=== PATIENT | male | born 1985 | race Caucasian/White ===

== ENCOUNTER 2016-09-10 21:27 | Emergency (ER) | payer BC ==
[2016-09-10] MEDS ORDERED: NS 1,000 ML IV ONE ×2 (21:31→22:34)
--- NOTE | 2016-09-10 21:35 | CPEKG ---
Heart Rate: 122 RR Interval: 492 P-R Interval: 156 QRSD Interval: 104 QT Interval: 320 QTC Interval: 456 P [place]: 60 QRS [place]: 26 T Wave [place]: 25 EKG Severity - BORDERLINE ECG - EKG Impression: SINUS TACHYCARDIA EKG Impression: PROBABLE LEFT ATRIAL ABNORMALITY Electronically Signed By: Mairo Randall 12-Sep-2016 13:05:26
[2016-09-10] MEDS ORDERED: LORazepam 2 MG/ML INJ IVP ONE (21:41)
[2016-09-10 21:46] LABS: % IMMATURE GRANULYOCYTES 0.3 % (0.0-1.1); ABSOLUTE IMMATURE GRANULOCYTES 0.03 10^3/uL (0.00-0.10); ADD DIFF? NO; ADD MORPH? NO; ADD SCAN? NO; ATYPICAL LYMPHOCYTE FLAG 10 (0-99); FRAGMENT RBC FLAG 20 (0-99); HEMATOCRIT 48.2 % (40.0-51.0); HEMOGLOBIN 17.4 g/dL (13.7-17.5); LEFT SHIFT FLG 0 (0-99); LIPEMIA HEMOLYSIS FLAG 90 (0-99); MEAN CELL HEMOGLOBIN 30.5 pg (27.9-34.1); MEAN CELL HEMOGLOBIN CONCENTR. 36.1 g/dL (32.4-36.7); MEAN CELL VOLUME 84.6 fL (81.5-99.8); PLATELET CLUMPS FLAG 10 (0-99); PLATELET COUNT 358 10^3/uL (150-400); RED CELL DISTRIBUTION WIDTH 11.8 % (11.5-15.2)
--- NOTE | 2016-09-10 21:47 | EDPHY ---
HPI/HX/ROS/PE/MDM Narrative: Chief complaint: Palpitations and chest tightness HPI: 31-year-old male began having palpitations and chest tightness approximately 30 minutes prior to arrival. Patient denies similar symptoms in the past. He has a past medical history of attention deficit hyperactivity disorder and takes Adderall in divided doses over the course today. Patient states that he also smokes small amount of marijuana daily. He has been cutting down on his alcohol consumption states he had half a drink today. He does smoke 1 cigarette a day. Denies any recent illness. No fevers or chills. No nausea or vomiting. Has not had similar symptoms in the past has switched to a new type of marijuana 5 days ago but has never had these symptoms before. Has denies any other ingestions. Does not have a past medical history of of sudden cardiac or arrhythmia to his knowledge. States that he does not believe he has taken extra doses of his medications today as he was only the days without in a pill bottle every morning. Patient states that during EMS arrival his chest tightness has gone away but is still feeling some palpitations and heart racing. ROS: 10 point Review of Systems is negative except as noted in the HPI. Physical exam: Gen: Awake, Alert, No Distress, heart rate noted 136 a narrow complex HEENT: Nose: no rhinorrhea Eyes: PERRLA, EOMI Mouth: Moist mucosa Neck: Supple, no JVD Chest: nontender, lungs clear to auscultation Heart: Tachycardia, no obvious murmur but difficult to assess due to her increased rate Abd: Soft, non-tender, no guarding Back: no CVA tenderness, no midline tenderness Ext: no edema, non-tender Skin: no rash Neuro: CN II-XII intact, Sensation grossly intact, Strength 5/5 in bilateral upper and lower extremities ED Course: EC, sinus tachycardia with a rate of 122. Normal axis, normal intervals , no acute ST or T-wave changes, impression: Sinus tachycardia Patient is feeling improved after a L of IV fluids. Has also gotten a dose of Ativan here. Heart rate is down to 108. He is resting comfortably. ECG shows a sinus tachycardia with no ischemia or concerning features. Laboratory evaluations are unremarkable. There is no evidence of acute cardiac abnormality at this time. Will discharge with referral for outpatient follow-up. - Data Points Laboratory Results: Laboratory Results 09/10/16 21:20 09/10/16 21:20 09/10/16 21:20 WBC 10.01 H 10^3/uL (3.80-9.50) RBC 5.70 10^6/uL (4.40-6.38) Hgb 17.4 g/dL (13.7-17.5) Hct 48.2 % (40.0-51.0) MCV 84.6 fL (81.5-99.8) MCH 30.5 pg (27.9-34.1) MCHC 36.1 g/dL (32.4-36.7) RDW 11.8 % (11.5-15.2) Plt Count 358 10^3/uL (150-400) MPV 10.0 fL (8.7-11.7) Neut % (Auto) 37.5 L % (39.3-74.2) Lymph % (Auto) 51.4 H % (15.0-45.0) [place] % (Auto) 8.6 % (4.5-13.0) Eos % (Auto) 1.2 % (0.6-7.6) Baso % (Auto) 1.0 % (0.3-1.7) Nucleat RBC Rel Count 0.0 % (0.0-0.2) Absolute Neuts (auto) 3.75 10^3/uL (1.70-6.50) Absolute Lymphs (auto) 5.15 H 10^3/uL (1.00-3.00) Absolute Monos (auto) 0.86 H 10^3/uL (0.30-0.80) Absolute Eos (auto) 0.12 10^3/uL (0.03-0.40) Absolute Basos (auto) 0.10 10^3/uL (0.02-0.10) Absolute Nucleated RBC 0.00 10^3/uL (0-0.01) Immature Gran % 0.3 % (0.0-1.1) Immature Gran # 0.03 10^3/uL (0.00-0.10) Sodium 141 mEq/L (134-144) Potassium 4.0 mEq/L (3.5-5.2) Chloride 100 mEq/L (97-110) Carbon Dioxide 27 mEq/l (22-31) Anion Gap 14 mEq/L (8-16) BUN 16 mg/dL (7-23) Creatinine 1.0 mg/dL (0.7-1.3) Estimated GFR > 60 Glucose 102 H mg/dL (70-100) Calcium 10.0 mg/dL (8.5-10.4) Medications Given: Discontinued Medications Sodium Chloride (Ns) 1,000 mls @ 0 mls/hr IV ONCE ONE PRN Reason: Wide Open Stop: 09/10/16 21:32 Last Admin: 09/10/16 21:30 Dose: 1,000 mls Sodium Chloride (Ns) 1,000 mls @ 0 mls/hr IV ONCE ONE PRN Reason: Wide Open Stop: 09/10/16 22:35 Last Admin: 09/10/16 22:38 Dose: 1,000 mls Lorazepam (Ativan Injection) 1 mg IVP EDNOW ONE Stop: 09/10/16 21:42 Last Admin: 09/10/16 21:45 Dose: 1 mg General Initial Vital Signs: Initial Vital Signs Temperature (C) 36.9 C 09/10/16 21:36 Heart Rate 132 H 09/10/16 21:36 Respiratory Rate 16 09/10/16 21:36 Blood Pressure 155/102 H 09/10/16 21:36 O2 Sat (%) 92 09/10/16 21:36 O2 Delivery Mode Room Air Allergies/Adverse Reactions: No Known Allergies Allergy (Unverified 12/26/14 20:49) Home Medications: Medication Instructions Recorded Adderall 09/10/16 Departure - Departure Disposition: Home, Routine, Self-Care Clinical Impression: Palpitations Condition: Good Instructions: Palpitations (ED) Additional Instructions: Avoid caffeine or other stimulants while taking or Adderall. Avoid using marijuana until you have this further investigated. Continue to decrease your alcohol intake. Follow up with her primary care physician in 2-3 days for further evaluation. Referrals: Ulisses Johnson MD [Primary Care Provider] - As per Instructions
[2016-09-10 22:00] LABS: ANION GAP 14 mEq/L (8-16); CARBON DIOXIDE 27 mEq/l (22-31); CHLORIDE 100 mEq/L (97-110); GLOMERULAR FILTRATION RATE > 60; GLUCOSE 102 mg/dL (70-100); SODIUM 141 mEq/L (134-144)
[2016-09-10 22:20] VITALS: RESP 16
[2016-09-11 00:46] VITALS: BP 132/85; PULSE 89; TEMP 98.1; O2SAT 97
== END 2016-09-10 23:29 | disposition home or self-care (01) ==
LOC: EDUNIT#
DX: R00.2 Palpitations (principal)
CPT/HCPCS: 96374

== ENCOUNTER 2016-09-14 21:03 | Emergency (ER) | payer BC ==
[2016-09-14 21:19] VITALS: RESP 16; TEMP 98.6
--- NOTE | 2016-09-14 21:46 | CPEKG ---
Heart Rate: 79 RR Interval: 759 P-R Interval: 172 QRSD Interval: 106 QT Interval: 368 QTC Interval: 422 P [place]: 62 QRS [place]: 16 T Wave [place]: 21 EKG Severity - NORMAL ECG - EKG Impression: SINUS RHYTHM Electronically Signed By: Gabriela Brambila 14-Sep-2016 22:02:29
--- NOTE | 2016-09-14 22:24 | EDPHY ---
H & P Stated Complaint: palpitations HPI/ROS: HPI CHIEF COMPLAINT: Palpitation HISTORY OF PRESENT ILLNESS: This patient is a 31-year-old male, otherwise healthy no significant medical history, does take Adderall for attention deficit hyperactivity disorder, was recently seen here on September 10 for palpitations and discomfort in his chest had a negative workup was could be contributed to Adderall dehydration and marijuana. Patient presents back to the emergency room this evening with less than 1 minute of chest discomfort he describes it as a spasm no chest pain or pressure. Denies radiation of pain he did not get nauseous he did not have sweating. He tele tells me he got very anxious and concerned and decided to come to the emergency room because of his recent ER visit. Upon arrival here in the emergency room is resting comfortably no acute distress he states he feels fine. Did follow up with his primary care doctor after he was seen here for chest palpitations was noted to have hypertension by his primary care doctor was recommended to keep a close eye on this and keep a log. Patient does tell me that he has no significant family history of cardiac disease or premature cardiac or signs of arrhythmia and his family members. Patient tells me that recently he has made drastic changes in his lifestyle specifically giving up alcohol, not smoking marijuana, and going to the gym daily. Past Medical History: Attention deficit hyperactivity disorder on Adderall Past Surgical History: no significant surgical history Social History: he denies use currently of drugs alcohol tobacco products Family History: noncontributory ROS REVIEW OF SYSTEMS: A comprehensive 10 point review of systems is otherwise negative aside from elements mentioned in the history of present illness. Exam Constitutional appears well, nontoxic triage nursing summary reviewed, vital signs reviewed, awake/alert. (noted to be hypertensive when he got here) Eyes normal conjunctivae and sclera, EOMI, PERRLA. HENT normal inspection, atraumatic, moist mucus membranes, no epistaxis, neck supple/ no meningismus, no raccoon eyes. Respiratory clear to auscultation bilaterally, normal breath sounds, no respiratory distress, no wheezing. Cardiovascular rate normal, regular rhythm, no murmur, no edema, distal pulses normal. Gastrointestinal soft, non-tender, no rebound, no guarding, normal bowel sounds, no distension, no pulsatile mass. Genitourinary no CVA tenderness. Musculoskeletal no midline vertebral tenderness, full range of motion, no calf swelling, no tenderness of extremities, no meningismus, good pulses, neurovascularly intact. Skin pink, warm, & dry, no rash, skin atraumatic. Neurologic awake, alert and oriented x 3, AAOx3, moves all 4 extremities equally, motor intact, sensory intact, CN II-XII intact, normal cerebellar, normal vision, normal speech. Psychiatric normal mood/affect. Heme/Lymph/Immune no lymphadenopathy. Differential Diagnosis: Includes but is not limited to in a particular order, cardiac arrhythmia, doubt acute coronary syndrome, anxiety, dehydration, electrolyte abnormality, rhabdomyolysis Medical Decision Making: this patient will have an IV established will obtain blood work including cardiac markers be placed on full auto refinisher received IV fluid bolus, he have an EKG and troponin this is unlikely to be a presentation of ACS. He feels fine at this time. Re-evaluation: EKG interpretation by me on record in [facility] system. Impression time of EKG 1245, this is sinus rhythm rate of 79. Intervals are appropriate no signs of ischemia. Specifically no ST elevation, ST depression, T-wave abnormalities. No signs of arrhythmia. No signs of WPW or Brugada. 2352: re-evaluation at this time this patient is resting comfortably no acute distress.. Patient has no complaints he denies chest pain or shortness of breath his blood work and EKG, troponin are all unremarkable. He has been on the auto refinisher without any signs of arrhythmia. X-ray has been reviewed is unremarkable. Did explain allowed to go home however if she develops chest pain, shortness of breath, palpitations worsening symptoms he needs return to the ER. He should follow up with Cardiology as directed. Highly unlikely to be ACS presentation given no risk factors age of 31 unremarkable EKG negative troponin unremarkable x-ray. ED x-ray chest one view negative for acute cardiopulmonary disease. Source: Patient - Personal History Current Tetanus/Diphtheria Vaccine: Unsure Current Tetanus Diphtheria and Acellular Pertussis (TDAP): Unsure - Medical/Surgical History Hx Asthma: Yes Hx Chronic Respiratory Disease: No Hx Diabetes: No Hx Cardiac Disease: No Hx Renal Disease: No Hx Cirrhosis: No Hx Alcoholism: No Hx HIV/AIDS: No Hx Splenectomy or Spleen Trauma: No Other PMH: asthma, ADHD, palpitations - Social History Smoking Status: Former smoker Constitutional: Initial Vital Signs Temperature (C) 37 C 09/14/16 21:15 Heart Rate 87 09/14/16 21:15 Respiratory Rate 16 09/14/16 21:15 Blood Pressure 173/104 H 09/14/16 21:15 O2 Sat (%) 97 09/14/16 21:15 O2 Delivery Mode Room Air Allergies/Adverse Reactions: No Known Allergies Allergy (Unverified 09/14/16 21:14) Home Medications: Medication Instructions Recorded Adderall 09/10/16 Medical Decision Making - Data Points Laboratory Results: Laboratory Results 09/14/16 22:15 09/14/16 22:15 09/14/16 22:15 WBC 8.05 10^3/uL (3.80-9.50) RBC 5.40 10^6/uL (4.40-6.38) Hgb 16.6 g/dL (13.7-17.5) Hct 45.5 % (40.0-51.0) MCV 84.3 fL (81.5-99.8) MCH 30.7 pg (27.9-34.1) MCHC 36.5 g/dL (32.4-36.7) RDW 11.7 % (11.5-15.2) Plt Count 284 10^3/uL (150-400) MPV 9.8 fL (8.7-11.7) Neut % (Auto) 59.3 % (39.3-74.2) Lymph % (Auto) 29.8 % (15.0-45.0) [place] % (Auto) 8.8 % (4.5-13.0) Eos % (Auto) 1.2 % (0.6-7.6) Baso % (Auto) 0.7 % (0.3-1.7) Nucleat RBC Rel Count 0.0 % (0.0-0.2) Absolute Neuts (auto) 4.76 10^3/uL (1.70-6.50) Absolute Lymphs (auto) 2.40 10^3/uL (1.00-3.00) Absolute Monos (auto) 0.71 10^3/uL (0.30-0.80) Absolute Eos (auto) 0.10 10^3/uL (0.03-0.40) Absolute Basos (auto) 0.06 10^3/uL (0.02-0.10) Absolute Nucleated RBC 0.00 10^3/uL (0-0.01) Immature Gran % 0.2 % (0.0-1.1) Immature Gran # 0.02 10^3/uL (0.00-0.10) PT 13.9 SEC (12.0-15.0) INR 1.08 (0.83-1.16) APTT 29.7 SEC (23.0-38.0) D-Dimer 0.30 ug/mLFEU (0.00-0.50) Sodium 138 mEq/L (134-144) Potassium 3.9 mEq/L (3.5-5.2) Chloride 100 mEq/L (97-110) Carbon Dioxide 25 mEq/l (22-31) Anion Gap 13 mEq/L (8-16) BUN 14 mg/dL (7-23) Creatinine 0.8 mg/dL (0.7-1.3) Estimated GFR > 60 Glucose 96 mg/dL (70-100) Calcium 9.5 mg/dL (8.5-10.4) Magnesium 1.9 mg/dL (1.6-2.3) Total Bilirubin 1.5 H mg/dL (0.1-1.4) Conjugated Bilirubin 0.2 mg/dL (0.0-0.5) Unconjugated Bilirubin 1.3 H mg/dL (0.0-1.1) AST 30 IU/L (17-59) ALT 54 IU/L (21-72) Alkaline Phosphatase 83 IU/L (38-126) Creatine Kinase 124 IU/L (0-224) Troponin I < 0.012 ng/mL (0-0.034) NT-Pro-B Natriuret Pep < 11 pg/mL (0-125) Total Protein 7.7 g/dL (6.3-8.2) Albumin 4.4 g/dL (3.5-5.0) Lipase 88.0 IU/L (23-300) Medications Given: Discontinued Medications Sodium Chloride (Ns) 1,000 mls @ 0 mls/hr IV ONCE ONE PRN Reason: As Directed Stop: 09/14/16 22:35 Last Admin: 09/14/16 22:50 Dose: 1,000 mls Departure - Departure Disposition: Home, Routine, Self-Care Clinical Impression: Palpitations, Anxiety Condition: Good Instructions: Anxiety (ED), Palpitations (ED) Additional Instructions: 1. Return emergency room if develops any worsening symptoms questions or concerns. 2.Please follow up with Dr. Valentin please call to make an appointment. Referrals: Ulisses Johnson MD [Primary Care Provider] - As per Instructions Katharina Valentin MD [Medical Doctor] - As per Instructions
[2016-09-14] MEDS ORDERED: NS 1,000 ML IV ONE (22:34)
[2016-09-14 22:47] LABS: % IMMATURE GRANULYOCYTES 0.2 % (0.0-1.1); ABSOLUTE IMMATURE GRANULOCYTES 0.02 10^3/uL (0.00-0.10); ADD DIFF? NO; ADD MORPH? NO; ADD SCAN? NO; ATYPICAL LYMPHOCYTE FLAG 10 (0-99); FRAGMENT RBC FLAG 0 (0-99); HEMATOCRIT 45.5 % (40.0-51.0); HEMOGLOBIN 16.6 g/dL (13.7-17.5); LEFT SHIFT FLG 0 (0-99); LIPEMIA HEMOLYSIS FLAG 90 (0-99); MEAN CELL HEMOGLOBIN 30.7 pg (27.9-34.1); MEAN CELL HEMOGLOBIN CONCENTR. 36.5 g/dL (32.4-36.7); MEAN CELL VOLUME 84.3 fL (81.5-99.8); MEAN PLATELET VOLUME 9.8 fL (8.7-11.7); PLATELET CLUMPS FLAG 0 (0-99); PLATELET COUNT 284 10^3/uL (150-400); RED CELL DISTRIBUTION WIDTH 11.7 % (11.5-15.2)
[2016-09-14 22:51] LABS: APTT 29.7 SEC (23.0-38.0); INR 1.08 (0.83-1.16); PROTIME(PATIENT) 13.9 SEC (12.0-15.0)
[2016-09-14 23:05] LABS: ALANINE AMINOTRANSFERASE 54 IU/L (21-72); ALBUMIN 4.4 g/dL (3.5-5.0); ALKALINE PHOSPHATASE 83 IU/L (38-126); ANION GAP 13 mEq/L (8-16); ASPARTATE AMINOTRANSFERASE 30 IU/L (17-59); BILIRUBIN,TOTAL 1.5 mg/dL (0.1-1.4); BILIRUBIN-CONJUGATED 0.2 mg/dL (0.0-0.5); BILIRUBIN-UNCONJUGATED 1.3 mg/dL (0.0-1.1); CALCIUM 9.5 mg/dL (8.5-10.4); CARBON DIOXIDE 25 mEq/l (22-31); CHLORIDE 100 mEq/L (97-110); CREATININE 0.8 mg/dL (0.7-1.3); GLOMERULAR FILTRATION RATE > 60; GLUCOSE 96 mg/dL (70-100); MAGNESIUM 1.9 mg/dL (1.6-2.3); POTASSIUM 3.9 mEq/L (3.5-5.2); SODIUM 138 mEq/L (134-144); TOTAL PROTEIN 7.7 g/dL (6.3-8.2)
--- NOTE | 2016-09-14 23:11 | DX ---
Portable chest, single view. HISTORY: Chest pain FINDINGS: Heart size is within normal limits. Pulmonary vascularity appears normal. Lungs are clear. No evidence for pleural effusion or pneumothorax. No significant osseous abnormality. IMPRESSION: No evidence for acute cardiopulmonary abnormality.
[2016-09-14 23:14] LABS: TROPONIN I < 0.012 ng/mL (0-0.034)
[2016-09-15 00:05] VITALS: BP 152/108; PULSE 76; O2SAT 95
== END 2016-09-15 00:05 | disposition home or self-care (01) ==
DX: F41.9 Anxiety disorder, unspecified (principal); J45.909 Unspecified asthma, uncomplicated; Z87.891 Personal history of nicotine dependence

== ENCOUNTER 2016-10-23 11:15 | Emergency (ER) | payer BC ==
[2016-10-23 11:49] VITALS: BP 168/110; PULSE 89; RESP 18; TEMP 98.6; O2SAT 98
--- NOTE | 2016-10-23 11:52 | UCPHY ---
H & P Time Seen by Provider: 10/23/16 11:31 Patient Type: Established HPI/ROS: HPI Cold feet, tingling in hands. 31-year-old male by private vehicle. He presents with multiple complaints ongoing for 1-2 days including sensation of cold feet, tingling in his feet, cold legs, tingling in his hands, weakness in his legs and arms. He denies any discoloration of his urine. He has a history of ADD and anxiety. He was seen in the emergency department on September 14 of this year with complaint of palpitations. He had a big workup at that time for cardiac-related problems which was completely unremarkable. He had a normal CK at that time as well. ROS: Constitutional: No fever, no chills. As above. Eyes: No discharge. No changes in vision. ENT: No sore throat. No nasal congestion or rhinorrhea. Respiratory: No cough. No shortness of breath. Cardiac: No chest pain, no palpitations. Gastrointestinal: No abdominal pain, no vomiting, no diarrhea. Genitourinary: No hematuria. No dysuria or increased frequency with urination. Musculoskeletal: No back pain. No neck pain. No myalgias or arthralgias. Skin: No rashes. Neurological: No headache. No focal weakness or altered sensation. As above. Past medical history: ADD. Primary care physician is Dr. Johnson at [facility]. Social history: Nonsmoker. No alcohol. Exercises on a regular basis. Physical Exam: General Appearance: Alert, no distress. This patient is responding to questions appropriately and in full sentences. This patient appears well- hydrated and well-nourished. Eyes: Pupils equal and round no pallor or injection. No lid edema, erythema or injection. ENT, Mouth: Mucous membranes are moist. The pharyngeal tissues are unremarkable. No edema or swelling. No asymmetry suggestive of abscess. No erythema or exudates. Respiratory: There are no retractions, lungs are clear to auscultation with good air movement bilaterally. Cardiovascular: Regular rate and rhythm. No murmur. Gastrointestinal: Abdomen is soft and nontender, no masses, bowel sounds normal. No focal tenderness at McBurney's point. No Castaneda sign. Neurological: Motor sensory function is grossly intact. Motor sensory function is intact in all myotomes in dermatomes of the bilateral lower extremities. He is strong as an ox. With no weakness or asymmetry appreciated on motor testing. Cranial nerves are normal. Gait is normal. Skin: Warm and dry, no rashes. Musculoskeletal: Neck is supple and nontender. Extremities are symmetrical. All joints range without pain or impingement. Psychiatric: No agitation. No depression. Database: EKG: Imaging: Procedures: Emergency department course: Patient's presentation is likely anxiety driven. Will check a urine dip for myoglobin. Consideration of polymyositis/dermatomyositis. MS also unlikely. Urinalysis unremarkable. Patient reassessed at 12:15 p.m.. Resting comfortably at this time. Repeat neurologic Assessment is nonfocal. I feel he is safe for discharge. I will have him follow up with his primary care physician, Dr. Johnson for re-evaluation and further management. I did discuss obtaining an outpatient MRI of his brain to evaluate for possible MS. I explained to him however that this was very unlikely as well. He feels comfortable with this plan. Return to Urgent Care/emergency department precautions discussed with him. All of his questions were answered. He was discharged in good condition. Differential Diagnosis: The differential diagnosis on this patient includes but is not limited to anxiety reaction. Polymyositis, dermatomyositis, rhabdomyolysis, MS unlikely. This represents a partial list of diagnoses considered. These considerations are based on history, physical exam, past history, reassessment and diagnostic testing. Smoking Status: Former smoker Allergies/Adverse Reactions: No Known Allergies Allergy (Unverified 10/23/16 11:37) Home Medications: Medication Instructions Recorded Adderall 09/10/16 Departure - Departure Disposition: Home, Routine, Self-Care Clinical Impression: Anxiety reaction, Paresthesias Condition: Good Instructions: Paresthesia (ED), Anxiety (ED) Additional Instructions: Read and follow provided instructions. Follow-up with your primary care physician, Dr. Johnson, in 2-3 days for re- evaluation. Discuss neurology referral as needed. Consider MRI of the brain to evaluate for other possible causes of your complaint. Return to the emergency department for worsening symptoms or other serious concerns. Referrals: Ulisses Johnson MD [Primary Care Provider] - As per Instructions - PQRS PQRS Measurement: Not applicable.
[2016-10-23 12:01] LABS: COLOR YELLOW; LEUKOCYTE ESTERASE,URINE NEGATIVE (NEGATIVE); NITRITE,URINE NEGATIVE (NEGATIVE); PH,URINE 6.5 (5.0-7.5)
== END 2016-10-23 12:14 | disposition home or self-care (01) ==
LOC: CED 11:15
DX: F41.1 Generalized anxiety disorder (principal); R20.2 Paresthesia of skin; R53.1 Weakness
CPT/HCPCS: 81003-PO; G0463-PO